=== PATIENT | female | born 1965 | race Hispanic/Latino ===

== ENCOUNTER 2024-01-21 12:49 | Inpatient (IN) | payer OTHER ==
[~2024-01-21 12:49] MED LIST: Iopamidol-370 76% 500 ML MDV (1 ML CHARGE) ONE
[2024-01-21] MEDS ORDERED: Acetaminophen 500 MG TAB ONE (13:32)
[2024-01-21] MEDS ORDERED: Ondansetron ODT 4 MG TAB ONE (13:33)
[2024-01-21] MEDS ORDERED: Aspirin Chewable 81 MG TAB ONE (13:33)
[2024-01-21 14:17] LABS: #Basophils 0.03 10x3/uL (0.0-0.2); %Basophils 0.4 % (0.0-1.0); %Eosinophils 1.9 % (0.0-10.0); %Lymphocytes 27.8 % (21.0-51.0); %Monocytes 7.9 % (0.0-10.0); %Neutrophils 61.9 % (42.0-75.0); Hematocrit 33.5 % (36.0-47.0); Hemoglobin 10.9 g/dL (12.0-16.0); Mean Corpuscular HGB CONC 32.5 g/dL (32.0-36.0); Mean Corpuscular Hemoglobin 26.8 pg (27.0-31.0); Mean Corpuscular Volume 82.5 fL (78.0-98.0); Mean Platelet Volume 10.4 fL (7.4-10.4); Platelet Count 268 10x3/uL (130-400); RBC Distribution Width 14.2 % (11.5-14.5); Red Blood Cell (RBC) Count 4.06 mill/uL (4.20-5.40)
[2024-01-21 14:31] LABS: ALT (SGPT) 19 U/L (8-55); AST (SGOT) 28 U/L (5-34); Albumin 3.3 g/dL (3.5-5.0); Alkaline Phosphatase 103 U/L (40-110); Anion Gap 14 mmol/L (10-20); BUN (Urea Nitrogen) 6 mg/dL (9.8-20.1); Bilirubin, Total 0.3 mg/dL (0.2-1.2); Calc. Creatinine Clearance 0 mL/min (70-130); Calcium 8.6 mg/dL (7.8-10.44); Carbon Dioxide 25 mmol/L (22-29); Chloride 106 mmol/L (98-107); Estimated GFR 105; Globulin 3.7 g/dL (2.4-3.5); Glucose 92 mg/dL (70-105); Lipase 29 U/L (8-78); Potassium 3.1 mmol/L (3.5-5.1); Sodium 142 mmol/L (136-145)
[2024-01-21 14:35] LABS: Troponin I Less than 0.010 ng/mL (< 0.028)
[2024-01-21 14:43] LABS: SARS-CoV-2 E Target Negative; SARS-CoV-2 N2 Target Negative; SARS-CoV-2 NAA Rapid Test Not Detected (NotDetected); SARS-CoV-2 RdRP gene Negative
[2024-01-21 16:02] LABS: Bacteria/HPF Rare-Few HPF (None Seen); Bilirubin Negative (Negative); Blood, Urine 2+ (Negative); CAUTI Indications for Culture Pelvic or flank pain; Clarity Clear (Clear); Glucose, Urine (Dipstick) Normal (Negative); Ketone, Urine Negative (Negative); Leukocyte 75 Leu/uL (Negative); Nitrite Negative (Negative); Protein, Urine (Dipstick) Negative (Neg-Trace); Urobilinogen Normal mg/dL (Less than 2); pH, Urine 7.5 (5.0-9.0)
[2024-01-21 16:03] LABS: Urine Culture Reflex No No
[2024-01-21] MEDS ORDERED: Bisacodyl 5 MG TAB PO PRN (16:34)
[2024-01-21] MEDS ORDERED: Senokot S 8.6-50 MG TAB PO PRN (16:34)
[2024-01-21] MEDS ORDERED: Bisacodyl 10 MG SUPP PR PRN (16:34)
[2024-01-21 16:55] LABS: Amphetamine Not Detected (NotDetected); Barbiturates Screen Not Detected (NotDetected); Benzodiazepine Screen Not Detected (NotDetected); Cocaine Metabolite Screen Not Detected (NotDetected); Methadone Not Detected (NotDetected); Methamphetamine Not Detected (NotDetected); Opiate Screen Not Detected (NotDetected); Oxycodone Screen Not Detected (NotDetected); Phencyclidine (PCP) Not Detected (NotDetected); THC/Cannabinoid Screen Detected (NotDetected); Tricyclic Screen Not Detected (NotDetected)
[2024-01-21 18:13] LABS: Magnesium 1.8 mg/dL (1.6-2.6)
[2024-01-21 18:14] LABS: Acetaminophen Less than 10 mcg/mL (10.0-30.0); Alcohol Less than 10.0 mg/dL (Less than 10); Salicylate Less than 8.0 mg/dL (15.0-30.0)
[2024-01-21 18:16] LABS: Troponin I 0.019 ng/mL (< 0.028)
[2024-01-21] MEDS: Lidocaine 2% Viscous 10 mL, Alum & Magn 30 mL SSW SCH (18:31)
[2024-01-21] MEDS: Potassium Chloride 20 MEQ TAB PO SCH (18:39)
[2024-01-21] MEDS: Acetaminophen 325 MG TAB PO SCH (18:39)
[2024-01-21] MEDS: Ondansetron PF 4 MG/2 ML Vial IVP PRN (19:41)
[2024-01-21] MEDS: Magnesium 2 GM/50 ML(in water) 2 GM in Premix 1 BAG IVPB SCH (19:41)
[2024-01-21 21:02] LABS: Troponin I Less than 0.010 ng/mL (< 0.028)
[2024-01-22 04:10] LABS: #Basophils 0.03 10x3/uL (0.0-0.2); %Basophils 0.6 % (0.0-1.0); %Eosinophils 3.2 % (0.0-10.0); %Lymphocytes 31.5 % (21.0-51.0); %Monocytes 8.6 % (0.0-10.0); %Neutrophils 56.1 % (42.0-75.0); Hematocrit 32.6 % (36.0-47.0); Hemoglobin 10.5 g/dL (12.0-16.0); Mean Corpuscular HGB CONC 32.2 g/dL (32.0-36.0); Mean Corpuscular Hemoglobin 26.6 pg (27.0-31.0); Mean Corpuscular Volume 82.7 fL (78.0-98.0); Mean Platelet Volume 10.7 fL (7.4-10.4); Platelet Count 263 10x3/uL (130-400); RBC Distribution Width 14.4 % (11.5-14.5); Red Blood Cell (RBC) Count 3.94 mill/uL (4.20-5.40)
[2024-01-22 04:27] LABS: Hemoglobin A1c 5.4 % (4.0-6.0)
[2024-01-22 04:31] LABS: ALT (SGPT) 17 U/L (8-55); AST (SGOT) 28 U/L (5-34); Albumin 3.1 g/dL (3.5-5.0); Alkaline Phosphatase 92 U/L (40-110); Anion Gap 13 mmol/L (10-20); BUN (Urea Nitrogen) 7 mg/dL (9.8-20.1); Bilirubin, Direct 0.1 mg/dL (0.1-0.3); Bilirubin, Total 0.3 mg/dL (0.2-1.2); Calc. Creatinine Clearance 74 mL/min (70-130); Calcium 8.2 mg/dL (7.8-10.44); Carbon Dioxide 24 mmol/L (22-29); Cardiac Risk 3.1 (Less than 4.5); Chloride 105 mmol/L (98-107); Cholesterol 150 mg/dl (< 200 Desired); Estimated GFR 103; Glucose 108 mg/dL (70-105); HDL Cholesterol 49 mg/dL (>60 Neg Risk); LDL Cholesterol, Calculated 88 mg/dL; Magnesium 2.2 mg/dL (1.6-2.6); Potassium 3.5 mmol/L (3.5-5.1); Protein, Total 6.7 g/dL (6.0-8.3); Sodium 138 mmol/L (136-145); Triglycerides 64 mg/dL (Less than 150)
[2024-01-22 04:55] LABS: HIV (1/2) Antibody/Antigen NONREACTIVE (NonReactive); HIV 1/2 INDEX 0.05 S/CO (<1.00); Vitamin B12 257 pg/mL (211-911)
[2024-01-22] MEDS ORDERED: Aspirin Chewable 81 MG TAB PO SCH (09:00)
[2024-01-22] MEDS ORDERED: Enoxaparin 40 MG (0.4 mL) SYRINGE SC SCH (09:00)
[2024-01-22] MEDS ORDERED: Regadenoson 0.4 MG/5 ML SYRINGE ONE (09:21)
[2024-01-22 11:06] LABS: Syphilis Antibody Nonreactive (Nonreactive); Syphilis Antibody Index 0.05 S/CO (<1.00 Non-Reactive)
[2024-01-22] MEDS ORDERED: Magnevist 469MG/ML 20 ML VIAL ONE (12:03)
[2024-01-22] MEDS: Aspirin 81 mg Enteric Coated Tablet PO SCH (14:07)
[2024-01-22 16:40] VITALS: BMI 24.5
[2024-01-22] MEDS: Ziprasidone 20 MG CAP PO SCH (20:29)
[2024-01-22] MEDS: traZODone HCl 50 MG TAB PO SCH (20:29)
[2024-01-23 04:05] LABS: #Basophils 0.04 10x3/uL (0.0-0.2); %Basophils 0.8 % (0.0-1.0); %Eosinophils 3.2 % (0.0-10.0); %Lymphocytes 34.7 % (21.0-51.0); %Monocytes 7.6 % (0.0-10.0); %Neutrophils 53.5 % (42.0-75.0); Hematocrit 34.6 % (36.0-47.0); Hemoglobin 10.8 g/dL (12.0-16.0); Mean Corpuscular HGB CONC 31.2 g/dL (32.0-36.0); Mean Corpuscular Hemoglobin 26.5 pg (27.0-31.0); Mean Platelet Volume 10.6 fL (7.4-10.4); Platelet Count 260 10x3/uL (130-400); RBC Distribution Width 14.6 % (11.5-14.5); Red Blood Cell (RBC) Count 4.07 mill/uL (4.20-5.40)
[2024-01-23 04:26] LABS: Anion Gap 12 mmol/L (10-20); BUN (Urea Nitrogen) 8 mg/dL (9.8-20.1); Calc. Creatinine Clearance 71 mL/min (70-130); Calcium 8.9 mg/dL (7.8-10.44); Carbon Dioxide 26 mmol/L (22-29); Chloride 109 mmol/L (98-107); Estimated GFR 102; Glucose 99 mg/dL (70-105); Potassium 3.8 mmol/L (3.5-5.1); Sodium 143 mmol/L (136-145)
[2024-01-23 15:30] VITALS: TEMP 97.4
[2024-01-23 16:10] VITALS: BP 173/68
== END 2024-01-23 17:55 | disposition home or self-care (01) | DRG 563 ==
LOC: ERS 12:49 → 2SW 16:36 → OBSVTOIN 01-22 16:18
PROVIDERS: ADMIT Family Medicine; ATTEND Hospitalist
DX: S92.332A Displaced fracture of third metatarsal bone, left foot, initial encounter for closed fracture (principal); C90.00 Multiple myeloma not having achieved remission; R44.0 Auditory hallucinations; S92.322A Displaced fracture of second metatarsal bone, left foot, initial encounter for closed fracture; D64.9 Anemia, unspecified; F31.9 Bipolar disorder, unspecified; G47.33 Obstructive sleep apnea (adult) (pediatric); F20.9 Schizophrenia, unspecified; E87.6 Hypokalemia; R31.29 Other microscopic hematuria; W19.XXXA Unspecified fall, initial encounter; Z91.51 Personal history of suicidal behavior; Z91.012 Allergy to eggs; Z91.018 Allergy to other foods; Z88.0 Allergy status to penicillin; Z79.899 Other long term (current) drug therapy; Z98.890 Other specified postprocedural states; Z85.3 Personal history of malignant neoplasm of breast
CPT/HCPCS: 36415; 70553; 71045; 71275; 72192; 78452; 80048; 80053; 80061; 80076; 80306; 80307; 81001; 82607; 83036; 83690; 83735; 83880; 84443; 84484; 85025; 85379; 86780; 86850; 86900; 86901; 87389; 93005; 93017; 93306; 93970; 96374; 96375; A9502; A9579; G0378; J2405; J2785; J3475; Q0162; Q9967; U0002

== ENCOUNTER 2024-02-26 13:18 | Emergency (ER) | payer OTHER ==
[2024-02-26] MEDS ORDERED: Bacitracin 1 PK ONE (18:36)
[2024-02-26] MEDS ORDERED: Ibuprofen 200 MG TAB ONE (18:40)
[2024-02-26] MEDS ORDERED: traMADol HCl 50 MG TAB ONE (18:41)
== END 2024-02-26 18:50 | disposition home or self-care (01) ==
LOC: ERS 13:18
DX: S92.522A Displaced fracture of middle phalanx of left lesser toe(s), initial encounter for closed fracture (principal); M87.275 Osteonecrosis due to previous trauma, left foot; I13.2 Hypertensive heart and chronic kidney disease with heart failure and with stage 5 chronic kidney disease, or end stage renal disease; N18.6 End stage renal disease; I50.9 Heart failure, unspecified; F03.90 Unspecified dementia, unspecified severity, without behavioral disturbance, psychotic disturbance, mood disturbance, and anxiety; W18.30XA Fall on same level, unspecified, initial encounter
CPT/HCPCS: 99283

== ENCOUNTER 2024-03-14 15:30 | Observation (INO) | payer OTHER ==
[2024-03-14 16:09] LABS: #Basophils 0.04 10x3/uL (0.0-0.2); %Basophils 0.6 % (0.0-1.0); %Eosinophils 1.3 % (0.0-10.0); %Lymphocytes 21.9 % (21.0-51.0); %Monocytes 5.8 % (0.0-10.0); %Neutrophils 70.2 % (42.0-75.0); Hematocrit 34.2 % (36.0-47.0); Hemoglobin 10.7 g/dL (12.0-16.0); Mean Corpuscular HGB CONC 31.3 g/dL (32.0-36.0); Mean Corpuscular Hemoglobin 26.5 pg (27.0-31.0); Mean Corpuscular Volume 84.7 fL (78.0-98.0); Mean Platelet Volume 9.7 fL (7.4-10.4); Platelet Count 308 10x3/uL (130-400); RBC Distribution Width 14.3 % (11.5-14.5); Red Blood Cell (RBC) Count 4.04 mill/uL (4.20-5.40)
[2024-03-14 16:24] LABS: ALT (SGPT) 21 U/L (8-55); AST (SGOT) 30 U/L (5-34); Albumin 3.4 g/dL (3.5-5.0); Alkaline Phosphatase 111 U/L (40-110); Anion Gap 12 mmol/L (10-20); BUN (Urea Nitrogen) 10 mg/dL (9.8-20.1); Bilirubin, Total 0.4 mg/dL (0.2-1.2); Calc. Creatinine Clearance 0 mL/min (70-130); Calcium 8.9 mg/dL (7.8-10.44); Carbon Dioxide 26 mmol/L (22-29); Chloride 107 mmol/L (98-107); Estimated GFR 104; Globulin 3.8 g/dL (2.4-3.5); Glucose 107 mg/dL (70-105); Potassium 3.2 mmol/L (3.5-5.1); Protein, Total 7.2 g/dL (6.0-8.3); Sodium 142 mmol/L (136-145)
[2024-03-14 16:30] LABS: Troponin I Less than 0.010 ng/mL (< 0.028)
[2024-03-14] MEDS ORDERED: Enoxaparin 40 MG (0.4 mL) SYRINGE ONE (18:56)
[2024-03-14] MEDS ORDERED: Ondansetron ODT 4 MG TAB PO PRN (19:13)
[2024-03-14] MEDS ORDERED: Acetaminophen 325 MG TAB PO PRN (19:13)
[2024-03-14 20:08] LABS: Troponin I Less than 0.010 ng/mL (< 0.028)
[2024-03-14] MEDS ORDERED: Mag-Al 1200 mg/1200 mg/30 ML UDCUP ONE (20:49)
[2024-03-14] MEDS ORDERED: Lidocaine Viscous Sol 2% 15 ml UD Cup ONE (20:49)
[2024-03-14] MEDS: Ziprasidone 20 MG CAP PO SCH (22:07)
[2024-03-14] MEDS: traZODone HCl 50 MG TAB PO SCH (22:08)
[2024-03-14] MEDS: Lidocaine 2% Viscous Solution 10 ML, Aluminum & Magnesium Hydroxide 30 ML SSW SCH (22:08)
[2024-03-14] MEDS: Potassium Chloride 20 MEQ TAB PO SCH (22:08)
[2024-03-14 22:28] VITALS: BMI 25.0
[2024-03-14 23:06] LABS: Troponin I Less than 0.010 ng/mL (< 0.028)
[2024-03-15 03:52] LABS: #Basophils 0.04 10x3/uL (0.0-0.2); #Eosinophils Less than 0.03 10x3/uL (0.0-0.7); %Basophils 0.7 % (0.0-1.0); %Eosinophils 0.3 % (0.0-10.0); %Lymphocytes 32.1 % (21.0-51.0); %Monocytes 7.5 % (0.0-10.0); %Neutrophils 59.2 % (42.0-75.0); Hematocrit 32.3 % (36.0-47.0); Hemoglobin 10.3 g/dL (12.0-16.0); Mean Corpuscular HGB CONC 31.9 g/dL (32.0-36.0); Mean Corpuscular Hemoglobin 26.5 pg (27.0-31.0); Mean Corpuscular Volume 83.2 fL (78.0-98.0); Mean Platelet Volume 10.1 fL (7.4-10.4); Platelet Count 296 10x3/uL (130-400); RBC Distribution Width 14.5 % (11.5-14.5); Red Blood Cell (RBC) Count 3.88 mill/uL (4.20-5.40)
[2024-03-15 04:09] LABS: ALT (SGPT) 18 U/L (8-55); AST (SGOT) 25 U/L (5-34); Albumin 3.2 g/dL (3.5-5.0); Alkaline Phosphatase 104 U/L (40-110); Anion Gap 10 mmol/L (10-20); BUN (Urea Nitrogen) 13 mg/dL (9.8-20.1); Bilirubin, Total 0.3 mg/dL (0.2-1.2); Calc. Creatinine Clearance 70 mL/min (70-130); Calcium 8.7 mg/dL (7.8-10.44); Carbon Dioxide 28 mmol/L (22-29); Chloride 108 mmol/L (98-107); Estimated GFR 101; Globulin 3.5 g/dL (2.4-3.5); Glucose 93 mg/dL (70-105); Potassium 3.5 mmol/L (3.5-5.1); Protein, Total 6.7 g/dL (6.0-8.3); Sodium 142 mmol/L (136-145)
[2024-03-15] MEDS: Famotidine 20 MG TAB PO SCH (09:35)
[2024-03-15] MEDS ORDERED: Simethicone Chewable 80 MG TAB PO PRN (12:23)
[2024-03-15] MEDS: Milk Of Magnesia 30 ML UDCUP PO SCH ×2 (12:34→14:59)
[2024-03-15] MEDS: Bisacodyl 10 MG SUPP PR SCH (12:35)
[2024-03-15 12:50] LABS: Bilirubin Negative (Negative); Blood, Urine 2+ (Negative); CAUTI Indications for Culture Dysuria,urgency,freq; Clarity Clear (Clear); Glucose, Urine (Dipstick) Normal (Negative); Ketone, Urine Negative (Negative); Leukocyte 250 Leu/uL (Negative); Nitrite Negative (Negative); Protein, Urine (Dipstick) 10 mg/dL (Neg-Trace); Specific Gravity, Urine 1.016 (1.002-1.036); Squamous Epithelial 0-3 HPF (0-3); Urobilinogen Normal mg/dL (Less than 2)
[2024-03-15 12:51] LABS: Bacteria/HPF Rare-Few HPF (None Seen)
[2024-03-15 12:52] LABS: Urine Culture Reflex No No
[2024-03-15] MEDS ORDERED: Nitrofurantoin Monohyd/M-Cryst 100 MG CAP PO SCH ×2 (13:04→21:00)
[2024-03-15] MEDS: Gabapentin 300 MG CAP PO SCH (14:58)
[2024-03-15] MEDS: Nitrofurantoin Monohyd/M-Cryst 100 MG CAP PO SCH (14:58)
[2024-03-15 16:07] VITALS: BP 125/73; TEMP 98.1
[2024-03-15] MEDS ORDERED: Enoxaparin 40 MG (0.4 mL) SYRINGE SC SCH (21:00)
[2024-03-15] MEDS ORDERED: traZODone HCl 50 MG TAB PO SCH (21:00)
[2024-03-15] MEDS ORDERED: Ziprasidone 20 MG CAP PO SCH (21:00)
[2024-03-17] MEDS ORDERED: FLU (Fluarix Triv) TS24-25(6MOS UP)/PF 45 MCG/0.5 ML Syringe IM ONE (09:00)
== END 2024-03-15 17:45 | disposition home or self-care (01) ==
LOC: ERS 15:30 → 2SE 19:13
PROVIDERS: ADMIT Emergency Medicine; ATTEND Emergency Medicine
DX: R07.9 Chest pain, unspecified (principal); R10.9 Unspecified abdominal pain; K59.00 Constipation, unspecified; R30.0 Dysuria; E87.6 Hypokalemia; I82.409 Acute embolism and thrombosis of unspecified deep veins of unspecified lower extremity; Z79.899 Other long term (current) drug therapy; K21.9 Gastro-esophageal reflux disease without esophagitis; F41.9 Anxiety disorder, unspecified; D64.9 Anemia, unspecified; C90.00 Multiple myeloma not having achieved remission; M81.0 Age-related osteoporosis without current pathological fracture; F25.0 Schizoaffective disorder, bipolar type; F41.0 Panic disorder [episodic paroxysmal anxiety]; Z86.718 Personal history of other venous thrombosis and embolism
CPT/HCPCS: 36415; 71045; 74018; 80053; 81001; 83880; 84484; 85025; 93005; 96372; G0378; J1650

== ENCOUNTER 2024-03-27 13:05 | Emergency (ER) | payer OTHER ==
[2024-03-27 14:56] LABS: #Basophils 0.05 10x3/uL (0.0-0.2); %Basophils 0.8 % (0.0-1.0); %Eosinophils 2.3 % (0.0-10.0); %Lymphocytes 32.1 % (21.0-51.0); %Monocytes 8.7 % (0.0-10.0); %Neutrophils 55.8 % (42.0-75.0); Hematocrit 33.7 % (36.0-47.0); Hemoglobin 10.7 g/dL (12.0-16.0); Mean Corpuscular HGB CONC 31.8 g/dL (32.0-36.0); Mean Corpuscular Volume 84.9 fL (78.0-98.0); Mean Platelet Volume 10.6 fL (7.4-10.4); Platelet Count 264 10x3/uL (130-400); RBC Distribution Width 14.4 % (11.5-14.5); Red Blood Cell (RBC) Count 3.97 mill/uL (4.20-5.40)
[2024-03-27 15:12] LABS: ALT (SGPT) 34 U/L (8-55); AST (SGOT) 49 U/L (5-34); Albumin 3.4 g/dL (3.5-5.0); Alkaline Phosphatase 115 U/L (40-110); Anion Gap 11 mmol/L (10-20); BUN (Urea Nitrogen) 12 mg/dL (9.8-20.1); Bilirubin, Total 0.2 mg/dL (0.2-1.2); Calc. Creatinine Clearance 0 mL/min (70-130); Carbon Dioxide 26 mmol/L (22-29); Chloride 108 mmol/L (98-107); Estimated GFR 103; Globulin 3.7 g/dL (2.4-3.5); Glucose 98 mg/dL (70-105); Lipase 38 U/L (8-78); Potassium 3.9 mmol/L (3.5-5.1); Protein, Total 7.1 g/dL (6.0-8.3); Sodium 141 mmol/L (136-145)
[2024-03-27 15:13] LABS: Troponin I Less than 0.010 ng/mL (< 0.028)
[2024-03-27 16:00] LABS: Bilirubin Negative (Negative); Blood, Urine 2+ (Negative); Clarity Clear (Clear); Glucose, Urine (Dipstick) Normal (Negative); Ketone, Urine Negative (Negative); Leukocyte 500 Leu/uL (Negative); Nitrite Negative (Negative); Protein, Urine (Dipstick) Negative (Neg-Trace); Specific Gravity, Urine 1.002 (1.002-1.036); Urobilinogen Normal mg/dL (Less than 2)
[2024-03-27 16:02] LABS: CAUTI Indications for Culture Pelvic or flank pain; WBC/HPF 21-50 HPF (0-3)
[2024-03-27 16:08] LABS: Bacteria/HPF 1+ HPF (None Seen)
[2024-03-27 16:09] LABS: Urine Culture Reflex Yes Yes
== END 2024-03-27 16:33 | disposition home or self-care (01) ==
LOC: ERS 13:05
DX: N39.0 Urinary tract infection, site not specified (principal); I13.2 Hypertensive heart and chronic kidney disease with heart failure and with stage 5 chronic kidney disease, or end stage renal disease; N18.6 End stage renal disease; I50.9 Heart failure, unspecified
CPT/HCPCS: 71045; 80053; 81001; 83690; 84484; 85025; 87086; 93005

== ENCOUNTER 2024-05-30 11:57 | Emergency (ER) | payer OTHER ==
[2024-05-30] MEDS ORDERED: Ketorolac Tromethamine 30 MG (1 mL) VIAL ONE (12:51)
[2024-05-30 13:24] LABS: #Basophils 0.06 10x3/uL (0.0-0.2); %Basophils 0.9 % (0.0-1.0); %Eosinophils 2.4 % (0.0-10.0); %Lymphocytes 26.9 % (21.0-51.0); %Monocytes 8.5 % (0.0-10.0); %Neutrophils 60.9 % (42.0-75.0); Hematocrit 33.6 % (36.0-47.0); Hemoglobin 10.7 g/dL (12.0-16.0); Mean Corpuscular HGB CONC 31.8 g/dL (32.0-36.0); Mean Corpuscular Hemoglobin 27.1 pg (27.0-31.0); Mean Corpuscular Volume 85.1 fL (78.0-98.0); Mean Platelet Volume 9.9 fL (7.4-10.4); Platelet Count 293 10x3/uL (130-400); RBC Distribution Width 14.8 % (11.5-14.5); Red Blood Cell (RBC) Count 3.95 mill/uL (4.20-5.40)
[2024-05-30 13:41] LABS: ALT (SGPT) 16 U/L (8-55); AST (SGOT) 27 U/L (5-34); Albumin 3.2 g/dL (3.5-5.0); Alkaline Phosphatase 103 U/L (40-110); Anion Gap 10 mmol/L (10-20); BUN (Urea Nitrogen) 8 mg/dL (9.8-20.1); Bilirubin, Total 0.3 mg/dL (0.2-1.2); Calc. Creatinine Clearance 0 mL/min (70-130); Calcium 8.9 mg/dL (7.8-10.44); Carbon Dioxide 25 mmol/L (22-29); Chloride 107 mmol/L (98-107); Estimated GFR 101; Globulin 3.6 g/dL (2.4-3.5); Glucose 84 mg/dL (70-105); Lipase 27 U/L (8-78); Protein, Total 6.8 g/dL (6.0-8.3); Sodium 138 mmol/L (136-145)
[2024-05-30 14:01] LABS: Bilirubin Negative (Negative); Blood, Urine 2+ (Negative); CAUTI Indications for Culture Dysuria,urgency,freq; Clarity Clear (Clear); Glucose, Urine (Dipstick) Normal (Negative); Ketone, Urine Negative (Negative); Leukocyte Negative Leu/uL (Negative); Nitrite Negative (Negative); Protein, Urine (Dipstick) Negative (Neg-Trace); Squamous Epithelial 0-3 HPF (0-3); Urobilinogen Normal mg/dL (Less than 2); WBC/HPF None Seen HPF (0-3); pH, Urine 5.5 (5.0-9.0)
[2024-05-30 14:12] LABS: Bacteria/HPF Rare-Few HPF (None Seen); Urine Culture Reflex No No
== END 2024-05-30 15:56 | disposition home or self-care (01) ==
LOC: ERS 11:57
DX: R10.84 Generalized abdominal pain (principal); D64.9 Anemia, unspecified; R31.9 Hematuria, unspecified; I13.2 Hypertensive heart and chronic kidney disease with heart failure and with stage 5 chronic kidney disease, or end stage renal disease; N18.6 End stage renal disease; I50.9 Heart failure, unspecified; G40.909 Epilepsy, unspecified, not intractable, without status epilepticus; F03.90 Unspecified dementia, unspecified severity, without behavioral disturbance, psychotic disturbance, mood disturbance, and anxiety; Z55.6 Problems related to health literacy; Z79.899 Other long term (current) drug therapy
CPT/HCPCS: 36415; 74177; 80053; 81001; 83690; 85025; 96361; 96374; J1885

== ENCOUNTER 2024-06-12 17:06 | Inpatient (IN) | payer OTHER ==
[2024-06-12] MEDS ORDERED: Ondansetron PF 4 MG/2 ML Vial ONE (18:52)
[2024-06-12] MEDS ORDERED: Morphine 4 MG/ML VIAL ONE ×2 (18:52→20:29)
[2024-06-12 21:19] LABS: #Basophils 0.05 10x3/uL (0.0-0.2); #Eosinophils Less than 0.03 10x3/uL (0.0-0.7); %Basophils 0.3 % (0.0-1.0); %Eosinophils 0.1 % (0.0-10.0); %Lymphocytes 4.9 % (21.0-51.0); %Monocytes 2.5 % (0.0-10.0); %Neutrophils 91.8 % (42.0-75.0); Hematocrit 30.1 % (36.0-47.0); Hemoglobin 9.5 g/dL (12.0-16.0); Mean Corpuscular HGB CONC 31.6 g/dL (32.0-36.0); Mean Corpuscular Hemoglobin 26.9 pg (27.0-31.0); Mean Corpuscular Volume 85.3 fL (78.0-98.0); Mean Platelet Volume 9.4 fL (7.4-10.4); Platelet Count 268 10x3/uL (130-400); RBC Distribution Width 14.5 % (11.5-14.5); Red Blood Cell (RBC) Count 3.53 mill/uL (4.20-5.40)
[2024-06-12] MEDS ORDERED: Glucagon 1 MG/ML KIT IM PRN (21:20)
[2024-06-12] MEDS ORDERED: Dextrose 50% Abboject 50 ML SYRINGE SLOW IVP PRN (21:20)
[2024-06-12] MEDS ORDERED: traMADol HCl 50 MG TAB PO PRN (21:20)
[2024-06-12] MEDS ORDERED: hydrALAZINE 20 MG/ML VIAL SLOW IVP PRN (21:20)
[2024-06-12] MEDS ORDERED: Insulin Lispro 100 UNIT/ML 10 ML VIAL SC PRN (21:20)
[2024-06-12] MEDS ORDERED: Dextrose 5% in Water 1,000 ML IV PRN (21:20)
[2024-06-12 21:35] LABS: Calc. Creatinine Clearance 0 mL/min (70-130); Estimated GFR 107
[2024-06-12] MEDS ORDERED: levETIRAcetam 500 MG (5 mL) VIAL ONE (21:36)
[2024-06-12 21:37] LABS: ALT (SGPT) 28 U/L (8-55); AST (SGOT) 33 U/L (5-34); Albumin 3.3 g/dL (3.5-5.0); Alkaline Phosphatase 104 U/L (40-110); Anion Gap 12 mmol/L (10-20); BUN (Urea Nitrogen) 10 mg/dL (9.8-20.1); Bilirubin, Total 0.3 mg/dL (0.2-1.2); Carbon Dioxide 24 mmol/L (22-29); Chloride 106 mmol/L (98-107); Globulin 3.3 g/dL (2.4-3.5); Glucose 125 mg/dL (70-105); Potassium 3.5 mmol/L (3.5-5.1); Protein, Total 6.6 g/dL (6.0-8.3); Sodium 138 mmol/L (136-145)
[2024-06-12 21:38] LABS: INR-International Normal Ratio 1.1; Prothrombin Time 13.8 sec (12.0-14.7)
[2024-06-12 21:39] LABS: PTT 26.9 sec (22.9-36.1)
[2024-06-12 21:42] LABS: Troponin I Less than 0.010 ng/mL (< 0.028)
[2024-06-12 22:56] VITALS: BMI 27.3
[2024-06-13] MEDS: Ondansetron PF 4 MG/2 ML Vial IVP PRN (02:56)
[2024-06-13] MEDS: Morphine 2 MG/ML VIAL SLOW IVP PRN (04:17)
[2024-06-13 06:15] LABS: #Basophils Less than 0.03 10x3/uL (0.0-0.2); #Eosinophils Less than 0.03 10x3/uL (0.0-0.7); %Basophils 0.2 % (0.0-1.0); %Lymphocytes 6.8 % (21.0-51.0); %Monocytes 4.8 % (0.0-10.0); %Neutrophils 87.9 % (42.0-75.0); Mean Corpuscular HGB CONC 32.1 g/dL (32.0-36.0); Mean Corpuscular Hemoglobin 26.9 pg (27.0-31.0); Mean Corpuscular Volume 83.8 fL (78.0-98.0); Mean Platelet Volume 10.1 fL (7.4-10.4); Platelet Count 261 10x3/uL (130-400); RBC Distribution Width 14.7 % (11.5-14.5); Red Blood Cell (RBC) Count 3.34 mill/uL (4.20-5.40)
[2024-06-13 06:29] LABS: Calc. Creatinine Clearance 107 mL/min (70-130); Estimated GFR 109
[2024-06-13 06:30] LABS: Anion Gap 13 mmol/L (10-20); BUN (Urea Nitrogen) 13 mg/dL (9.8-20.1); Calcium 8.1 mg/dL (7.8-10.44); Carbon Dioxide 25 mmol/L (22-29); Chloride 103 mmol/L (98-107); Glucose 143 mg/dL (70-105); Potassium 3.5 mmol/L (3.5-5.1); Sodium 137 mmol/L (136-145)
[2024-06-13] MEDS ORDERED: Clindamycin/D5W 900 MG in Premix 1 BAG IVPB SCH (07:45)
[2024-06-13] MEDS: QUEtiapine 200 MG TAB PO SCH (08:40)
[2024-06-13] MEDS: levETIRAcetam 500 MG TAB PO SCH (08:41)
[2024-06-13] MEDS ORDERED: Non-Formulary Item 1 EACH (Levetiracetam [Keppra] 1,000 MG Tablet) PO SCH (09:00)
[2024-06-13] MEDS ORDERED: Non-Formulary Item 1 EACH (Quetiapine Fumarate [Seroquel] 400 MG Tablet) PO SCH (09:00)
[2024-06-13] MEDS: HYDROcodone/Acetaminophen 5/325 mg Tablet PO PRN (10:17)
[2024-06-13] MEDS ORDERED: Lorazepam 2 MG/ML VIAL SLOW IVP PRN (10:34)
[2024-06-13] MEDS ORDERED: Famotidine/PF 20 mg/2ml Vial ONE (12:26)
[2024-06-13] MEDS ORDERED: PROPOFOL 20 ML ONE (12:36)
[2024-06-13] MEDS ORDERED: Lidocaine 2% PF 5 ML VIAL ONE (12:36)
[2024-06-13] MEDS ORDERED: Clindamycin/D5W 900 mg/50 ml Premix Bag ONE (12:44)
[2024-06-13] MEDS ORDERED: Albuterol HFA (OR) 200 PUFF INH ONE (13:04)
[2024-06-13] MEDS ORDERED: EPINEPHrine 1 MG/10 ML Abboject SYRINGE ONE (13:06)
[2024-06-13] MEDS ORDERED: fentaNYL 50 mcg/mL 1 mL Vial ONE (13:06)
[2024-06-13] MEDS ORDERED: Metoprolol Tartrate 5 MG (5 mL) VIAL ONE (13:11)
[2024-06-13] MEDS ORDERED: PHENYLEPHRINE-NS 100 MCG/ML 10 ML SYRINGE ONE (13:15)
[2024-06-13] MEDS ORDERED: Ondansetron PF 4 MG/2 ML Vial ONE (13:17)
[2024-06-13] MEDS ORDERED: ePHEDrine Sulfate 50 MG/10 ML VIAL ONE (13:18)
[2024-06-13] MEDS ORDERED: NOREPINEPHRINE 8 MG/250 ML-D5W 0 ML ONE (13:24)
[2024-06-13] MEDS: Senokot S 8.6-50 MG TAB PO SCH (20:29)
[2024-06-13] MEDS: Clindamycin/D5W 900 MG in Premix 1 BAG IVPB SCH (20:30)
[2024-06-14 07:19] LABS: #Basophils Less than 0.03 10x3/uL (0.0-0.2); #Eosinophils Less than 0.03 10x3/uL (0.0-0.7); %Basophils 0.2 % (0.0-1.0); %Lymphocytes 7.3 % (21.0-51.0); %Monocytes 9.9 % (0.0-10.0); %Neutrophils 82.3 % (42.0-75.0); Hematocrit 22.2 % (36.0-47.0); Hemoglobin 7.1 g/dL (12.0-16.0); Mean Corpuscular Hemoglobin 27.2 pg (27.0-31.0); Mean Corpuscular Volume 85.1 fL (78.0-98.0); Mean Platelet Volume 9.3 fL (7.4-10.4); Platelet Count 180 10x3/uL (130-400); RBC Distribution Width 15.2 % (11.5-14.5); Red Blood Cell (RBC) Count 2.61 mill/uL (4.20-5.40)
[2024-06-14] MEDS: Enoxaparin 30 MG (0.3 mL) SYRINGE SC SCH (10:36)
[2024-06-14] MEDS: Polyethylene Glycol 3350 17 GM Packet PO SCH (10:36)
[2024-06-14 14:24] LABS: Hematocrit 26.6 % (36.0-47.0); Hemoglobin 8.8 g/dL (12.0-16.0)
[2024-06-14] MEDS: Acetaminophen 325 MG TAB PO PRN (15:43)
[2024-06-15 05:46] LABS: Hematocrit 26.4 % (36.0-47.0); Hemoglobin 8.4 g/dL (12.0-16.0); Mean Corpuscular HGB CONC 31.8 g/dL (32.0-36.0); Mean Corpuscular Hemoglobin 27.3 pg (27.0-31.0); Mean Corpuscular Volume 85.7 fL (78.0-98.0); Mean Platelet Volume 9.7 fL (7.4-10.4); Platelet Count 171 10x3/uL (130-400); RBC Distribution Width 15.2 % (11.5-14.5); Red Blood Cell (RBC) Count 3.08 mill/uL (4.20-5.40)
[2024-06-15 06:42] LABS: Anion Gap 14 mmol/L (10-20); BUN (Urea Nitrogen) 10 mg/dL (9.8-20.1); Calc. Creatinine Clearance 110 mL/min (70-130); Calcium 8.6 mg/dL (7.8-10.44); Carbon Dioxide 23 mmol/L (22-29); Chloride 103 mmol/L (98-107); Estimated GFR 109; Glucose 133 mg/dL (70-105); Potassium 3.1 mmol/L (3.5-5.1); Sodium 137 mmol/L (136-145)
[2024-06-15] MEDS: Magnesium Oxide 400 MG TAB PO SCH (09:00)
[2024-06-15] MEDS: Potassium Chloride 20 MEQ TAB PO SCH (10:52)
[2024-06-15] MEDS: Metoprolol Tartrate 25 MG TAB PO SCH (19:03)
[2024-06-15] MEDS: Lactated Ringer's 1,000 ML IV SCH (19:03)
[2024-06-16 02:49] LABS: #Basophils Less than 0.03 10x3/uL (0.0-0.2); %Basophils 0.2 % (0.0-1.0); %Eosinophils 0.5 % (0.0-10.0); %Lymphocytes 10.3 % (21.0-51.0); %Monocytes 8.4 % (0.0-10.0); %Neutrophils 80.1 % (42.0-75.0); Hematocrit 24.8 % (36.0-47.0); Mean Corpuscular HGB CONC 32.3 g/dL (32.0-36.0); Mean Corpuscular Hemoglobin 27.4 pg (27.0-31.0); Mean Corpuscular Volume 84.9 fL (78.0-98.0); Mean Platelet Volume 10.1 fL (7.4-10.4); Platelet Count 185 10x3/uL (130-400); RBC Distribution Width 15.2 % (11.5-14.5); Red Blood Cell (RBC) Count 2.92 mill/uL (4.20-5.40)
[2024-06-16 03:05] LABS: Anion Gap 14 mmol/L (10-20); BUN (Urea Nitrogen) 8 mg/dL (9.8-20.1); Calc. Creatinine Clearance 107 mL/min (70-130); Calcium 8.3 mg/dL (7.8-10.44); Carbon Dioxide 22 mmol/L (22-29); Chloride 103 mmol/L (98-107); Estimated GFR 109; Glucose 117 mg/dL (70-105); Magnesium 1.7 mg/dL (1.6-2.6); Potassium 3.7 mmol/L (3.5-5.1); Sodium 135 mmol/L (136-145)
[2024-06-16 03:32] LABS: Free T4 (Free Thyroxine) 1.25 ng/dL (0.70-1.48); Thyroid Stimulating Hormone 0.2288 uIU/mL (0.35-4.94)
[2024-06-16] MEDS: Metoprolol Tartrate 25 MG TAB PO SCH (09:36)
[2024-06-16] MEDS: Acetaminophen/Codeine 30-300mg Tablet PO PRN (09:42)
[2024-06-16] MEDS: Milk Of Magnesia 30 ML UDCUP PO PRN (16:21)
[2024-06-16] MEDS: Methocarbamol 500 MG TAB PO PRN (20:40)
[2024-06-17] MEDS: Enoxaparin 40 MG (0.4 mL) SYRINGE SC SCH (10:23)
[2024-06-17] MEDS: QUEtiapine 100 MG TAB PO SCH (21:33)
[2024-06-18] MEDS: Lactulose 20 GM (30 mL) UDCUP PO SCH (09:24)
[2024-06-18 16:48] LABS: Bacteria/HPF None Seen HPF (None Seen); Bilirubin Negative (Negative); Blood, Urine 2+ (Negative); CAUTI Indications for Culture Dysuria,urgency,freq; Clarity Clear (Clear); Glucose, Urine (Dipstick) Normal (Negative); Ketone, Urine Negative (Negative); Leukocyte Negative Leu/uL (Negative); Nitrite Negative (Negative); Protein, Urine (Dipstick) Negative (Neg-Trace); Specific Gravity, Urine 1.009 (1.002-1.036); Squamous Epithelial None Seen HPF (0-3); Urine Culture Reflex No No; Urobilinogen Normal mg/dL (Less than 2); WBC/HPF None Seen HPF (0-3)
[2024-06-18] MEDS: Ferrous Sulfate 325 MG TAB PO SCH (17:55)
[2024-06-18] MEDS: Ascorbic Acid 500 mg Chewable Tablet PO SCH (20:34)
[2024-06-19 05:25] LABS: Hematocrit 26.1 % (36.0-47.0); Hemoglobin 8.3 g/dL (12.0-16.0); Mean Corpuscular HGB CONC 31.8 g/dL (32.0-36.0); Mean Corpuscular Hemoglobin 27.1 pg (27.0-31.0); Mean Corpuscular Volume 85.3 fL (78.0-98.0); Mean Platelet Volume 9.4 fL (7.4-10.4); Platelet Count 309 10x3/uL (130-400); RBC Distribution Width 14.7 % (11.5-14.5); Red Blood Cell (RBC) Count 3.06 mill/uL (4.20-5.40)
[2024-06-19 06:30] LABS: Anion Gap 15 mmol/L (10-20); BUN (Urea Nitrogen) 8 mg/dL (9.8-20.1); Calc. Creatinine Clearance 103 mL/min (70-130); Calcium 8.6 mg/dL (7.8-10.44); Carbon Dioxide 24 mmol/L (22-29); Chloride 101 mmol/L (98-107); Estimated GFR 108; Glucose 105 mg/dL (70-105); Sodium 136 mmol/L (136-145)
[2024-06-19] MEDS ORDERED: Iopamidol-370 76% 500 ML MDV (1 ML CHARGE) ONE (09:20)
[2024-06-19 11:42] VITALS: BMI 27.3
[2024-06-19] MEDS: Magnesium Citrate 300 ML BOT PO SCH (12:02)
[2024-06-19 17:22] VITALS: BP 116/75; TEMP 98
== END 2024-06-19 15:42 | DRG 515 ==
LOC: ERS 17:06 → SURG B 21:24
PROVIDERS: ADMIT Student in an Organized Health Care Education/Training Program; ATTEND Student in an Organized Health Care Education/Training Program
PROC: 0QSF04Z Reposition Left Patella with Internal Fixation Device, Open Approach (ICD-10-PCS; principal; 2024-06-13)
PROC: 0QSD04Z Reposition Right Patella with Internal Fixation Device, Open Approach (ICD-10-PCS; 2024-06-13)
PROC: 4A00X4Z Measurement of Central Nervous Electrical Activity, External Approach (ICD-10-PCS; 2024-06-18)
DX: S82.001A Unspecified fracture of right patella, initial encounter for closed fracture (principal); J18.0 Bronchopneumonia, unspecified organism; C90.00 Multiple myeloma not having achieved remission; S82.002A Unspecified fracture of left patella, initial encounter for closed fracture; E87.1 Hypo-osmolality and hyponatremia; I50.32 Chronic diastolic (congestive) heart failure; G40.909 Epilepsy, unspecified, not intractable, without status epilepticus; S92.001A Unspecified fracture of right calcaneus, initial encounter for closed fracture; V49.9XXA Car occupant (driver) (passenger) injured in unspecified traffic accident, initial encounter; Z88.0 Allergy status to penicillin; Z91.012 Allergy to eggs; Z79.899 Other long term (current) drug therapy; Z98.890 Other specified postprocedural states; F39 Unspecified mood [affective] disorder; Z86.73 Personal history of transient ischemic attack (TIA), and cerebral infarction without residual deficits; E87.6 Hypokalemia; D64.9 Anemia, unspecified; I11.0 Hypertensive heart disease with heart failure; K59.00 Constipation, unspecified
CPT/HCPCS: 36415; 36416; 36430; 70450; 70551; 71045; 71260; 71275; 72125; 74018; 74177; 80048; 80053; 81001; 83735; 84100; 84439; 84443; 84484; 85025; 85027; 85610; 85730; 86850; 86900; 86901; 93005; 93010; 93306; 94760; 95700; 95711; 95957; 96361; 96374; 96375; 96376; C1713; G0390; J0171; J1650; J1953; J2270; J2272; J2405; J2704; J3010; J3490; J7120; P9016; P9059; Q9967

== ENCOUNTER 2024-07-25 07:01 | Observation (INO) | payer OTHER ==
[2024-07-25 08:03] LABS: #Basophils 0.04 10x3/uL (0.0-0.2); %Basophils 0.5 % (0.0-1.0); %Eosinophils 3.1 % (0.0-10.0); %Lymphocytes 21.6 % (21.0-51.0); %Monocytes 7.1 % (0.0-10.0); Hematocrit 35.2 % (36.0-47.0); Mean Corpuscular HGB CONC 31.3 g/dL (32.0-36.0); Mean Corpuscular Hemoglobin 27.6 pg (27.0-31.0); Mean Corpuscular Volume 88.4 fL (78.0-98.0); Mean Platelet Volume 8.6 fL (7.4-10.4); Platelet Count 438 10x3/uL (130-400); RBC Distribution Width 15.1 % (11.5-14.5); Red Blood Cell (RBC) Count 3.98 mill/uL (4.20-5.40)
[2024-07-25 08:18] LABS: Anion Gap 14 mmol/L (10-20); BUN (Urea Nitrogen) 9 mg/dL (9.8-20.1); Calc. Creatinine Clearance 86 mL/min (70-130); Calcium 9.8 mg/dL (7.8-10.44); Carbon Dioxide 28 mmol/L (22-29); Chloride 103 mmol/L (98-107); Estimated GFR 106; Glucose 91 mg/dL (70-105); Potassium 4.1 mmol/L (3.5-5.1); Sodium 141 mmol/L (136-145)
[2024-07-25] MEDS ORDERED: Lidocaine 2% PF 5 ML VIAL ONE (09:26)
[2024-07-25] MEDS ORDERED: Ondansetron PF 4 MG/2 ML Vial ONE (09:26)
[2024-07-25] MEDS ORDERED: Dexamethasone 20 MG/5 ML VIAL ONE (09:26)
[2024-07-25] MEDS ORDERED: fentaNYL PF 100 MCG/2 ML SYRINGE ONE (09:26)
[2024-07-25] MEDS ORDERED: PROPOFOL 20 ML ONE (09:26)
[2024-07-25] MEDS ORDERED: Midazolam HCl 2 mg/2 ml Vial ONE (09:26)
[2024-07-25] MEDS ORDERED: Clindamycin/D5W 900 mg/50 ml Premix Bag ONE (09:34)
[2024-07-25] MEDS ORDERED: PHENYLEPHRINE-NS 100 MCG/ML 10 ML SYRINGE ONE (10:15)
[2024-07-25] MEDS ORDERED: Bisacodyl 10 MG SUPP PR PRN (10:45)
[2024-07-25] MEDS ORDERED: fentaNYL 50 mcg/mL 1 mL Vial SLOW IVP PRN (10:45)
[2024-07-25] MEDS ORDERED: traMADol HCl 50 MG TAB PO PRN (10:45)
[2024-07-25] MEDS ORDERED: Communication Order-Pharmacy FS SCH (10:45)
[2024-07-25] MEDS ORDERED: Methocarbamol 500 MG TAB PO PRN (10:47)
[2024-07-25] MEDS: HYDROcodone/Acetaminophen 5/325 mg Tablet PO PRN (12:02)
[2024-07-25] MEDS: Ferrous Sulfate 325 MG TAB PO SCH (16:56)
[2024-07-25] MEDS: Clindamycin/D5W 900 MG in Premix 1 BAG IVPB SCH (16:56)
[2024-07-25] MEDS: Aspirin 81 mg Enteric Coated Tablet PO SCH (20:59)
[2024-07-25] MEDS: Ascorbic Acid 500 mg Chewable Tablet PO SCH (20:59)
[2024-07-25] MEDS: Metoprolol Tartrate 25 MG TAB PO SCH (20:59)
[2024-07-25] MEDS: levETIRAcetam 500 MG TAB PO SCH (20:59)
[2024-07-25] MEDS: QUEtiapine 100 MG TAB PO SCH (21:00)
[2024-07-26 05:57] LABS: #Basophils Less than 0.03 10x3/uL (0.0-0.2); #Eosinophils Less than 0.03 10x3/uL (0.0-0.7); %Basophils 0.2 % (0.0-1.0); %Lymphocytes 11.2 % (21.0-51.0); %Monocytes 7.9 % (0.0-10.0); %Neutrophils 79.3 % (42.0-75.0); Hematocrit 28.5 % (36.0-47.0); Hemoglobin 9.4 g/dL (12.0-16.0); Mean Corpuscular Hemoglobin 28.6 pg (27.0-31.0); Mean Corpuscular Volume 86.6 fL (78.0-98.0); Mean Platelet Volume 8.6 fL (7.4-10.4); Platelet Count 372 10x3/uL (130-400); RBC Distribution Width 14.7 % (11.5-14.5); Red Blood Cell (RBC) Count 3.29 mill/uL (4.20-5.40)
[2024-07-26] MEDS: Calcium Carbonate 500 MG ChewTAB PO PRN (11:08)
[2024-07-26 13:23] VITALS: BMI 32.5
[2024-07-26 13:40] VITALS: BP 104/60; TEMP 97.4
== END 2024-07-26 16:51 ==
LOC: SDC 07:01 → SURG B 11:32
PROVIDERS: ADMIT Orthopaedic Surgery; ATTEND Orthopaedic Surgery
PROC: 0SPD0JZ Removal of Synthetic Substitute from Left Knee Joint, Open Approach (ICD-10-PCS; principal; 2024-07-25)
DX: T81.30XA Disruption of wound, unspecified, initial encounter (principal); Y83.1 Surgical operation with implant of artificial internal device as the cause of abnormal reaction of the patient, or of later complication, without mention of misadventure at the time of the procedure; I11.0 Hypertensive heart disease with heart failure; I50.9 Heart failure, unspecified; K21.9 Gastro-esophageal reflux disease without esophagitis; F31.9 Bipolar disorder, unspecified; J45.909 Unspecified asthma, uncomplicated; G40.909 Epilepsy, unspecified, not intractable, without status epilepticus; C90.00 Multiple myeloma not having achieved remission; Z88.0 Allergy status to penicillin; Z91.012 Allergy to eggs; Z91.018 Allergy to other foods; Z79.2 Long term (current) use of antibiotics; Z79.899 Other long term (current) drug therapy
CPT/HCPCS: 36415; 80048; 85025; 87070; 87077; 87186; 87205; 93005; 93010; J1100; J2250; J2405; J2704; J3490